=== PATIENT | female | born 1980 | race Caucasian/White ===

== ENCOUNTER 2023-05-13 14:49 | Emergency (ER) | payer OTHER ==
[~2023-05-13] VITALS: Ht 175.3 cm; Wt 66.2 kg
[2023-05-13] MEDS ORDERED: EPIPEN 2-P0.3 MG/0.3 IM (15:41)
[2023-05-13 16:03] VITALS: BP 117/77
== END 2023-05-13 16:03 | disposition home or self-care (01) ==
LOC: ED 14:49
DX: T63.441A Toxic effect of venom of bees, accidental (unintentional), initial encounter (principal); Z88.5 Allergy status to narcotic agent
CPT/HCPCS: 99282; J1100